=== PATIENT | female | born 1970 | race Caucasian/White ===

== ENCOUNTER → 2016-08-18 | Outpatient (CLI) | payer BC ==
--- NOTE | 2016-08-19 07:57 | MM ---
Reason for exam: screening (asymptomatic). Last mammogram was performed 6 years and 9 months ago. History: Patient is postmenopausal. Saline implants in both breasts, November 2009. Physical Findings: A clinical breast exam by your physician is recommended on an annual basis and results should be correlated with mammographic findings. MG Screening Mammo Implant/CAD Bilateral CC, MLO, and ID view(s) were taken. Prior study comparison: November 13, 2009, bilateral digital screening mammogram. The breast tissue is extremely dense which could obscure a lesion on mammography. Interval placement of bilateral breast implants. ASSESSMENT: Benign, BI-RAD 2 RECOMMENDATION: Routine screening mammogram of both breasts in 1 year.
== END | disposition home or self-care (01) ==
LOC: RADMAMWWP 11:14
PROVIDERS: ATTEND Family Medicine
DX: Z12.31 Encounter for screening mammogram for malignant neoplasm of breast (principal)

== ENCOUNTER → 2017-01-16 | Outpatient (CLI) | payer BC ==
--- NOTE | 2017-01-16 14:01 | US ---
EXAMINATION TYPE: US venous doppler duplex LE LT DATE OF EXAM: 01/16/2017 1:43 PM COMPARISON: NONE CLINICAL HISTORY: 46-year-old female M79.662 PAIN IN LT LOWER LIMB. Swelling in left lower leg x 1 da y per patient. SIDE PERFORMED: Left TECHNIQUE: The lower extremity deep venous system is examined utilizing real time linear array sonog jena with graded compression, doppler sonography and color-flow sonography. FINDINGS: VESSELS IMAGED: Common Femoral Vein Deep Femoral Vein Greater Saphenous Vein * Femoral Vein Popliteal Vein Small Saphenous Vein * Proximal Calf Veins Posterior tibial veins (* superficial vessels) Left Leg: Negative for DVT. Incidentally, a prominent left inguinal lymph node is imaged = 2.8 x 1.5 x 0.6cm. There is maintenanc e of a large fatty hilum. IMPRESSION: No evidence for DVT within the left lower extremity.
[2017-01-16 14:58] LABS: Basophils % (A) 0 %; CH 30.5; CHCM 33.9; Eosinophils # (A) 0.2 k/uL (0-0.7); Eosinophils % (A) 3 %; HCT 37.9 % (34.0-46.0); HDW 2.64; HGB 12.4 gm/dL (11.4-16.0); Luc # (Auto) 0.15; Luc % (Auto) 3; Lymphocytes # (A) 1.8 k/uL (1.0-4.8); Lymphocytes % (A) 31 %; MCH 29.5 pg (25.0-35.0); MCHC 32.6 g/dL (31.0-37.0); MCV 90.5 fL (80.0-100.0); Mean Platelet Volume 6.7; Monocytes # (A) 0.4 k/uL (0-1.0); Monocytes % (A) 6 %; Neutrophils # (A) 3.4 k/uL (1.3-7.7); Neutrophils % (A) 58 %; RBC 4.19 m/uL (3.80-5.40); RDW 12.9 % (11.5-15.5); WBC 5.8 k/uL (3.8-10.6); WBC (Perox) 5.91
[2017-01-16 15:00] LABS: Potassium 3.8 mmol/L (3.5-5.1)
== END | disposition home or self-care (01) ==
LOC: RADUSWWP 12:35
PROVIDERS: ATTEND Family Medicine
DX: M79.662 Pain in left lower leg (principal); E87.6 Hypokalemia; E87.5 Hyperkalemia
CPT/HCPCS: 36415; 80051; 85025

== ENCOUNTER → 2018-09-19 | Outpatient (CLI) | payer BC ==
--- NOTE | 2018-09-19 09:42 | US ---
EXAMINATION TYPE: US liver DATE OF EXAM: 09/19/2018 COMPARISON: NONE CLINICAL HISTORY: R94.5 Abnormal LFTS. Elevated liver enzymes, history of cholecystectomy EXAM MEASUREMENTS: Liver Length: 15.5 cm Gallbladder Wall: surgically absent CBD: 0.3 cm Right Kidney: 11.1 x 5.4 x 4.5 cm Pancreas: wnl Liver: mildly heterogeneous Gallbladder: surgically absent Evidence for sonographic Levy's sign: no CBD: visualized portions wnl, limited by overlying bowel gas Right Kidney: wnl IMPRESSION: Very mild heterogeneity of the hepatic parenchyma may relate to early hepatocellular dise ase/early hepatic steatosis. No focal suspicious sonographic hepatic mass is seen.
== END | disposition home or self-care (01) ==
LOC: RADUSWWP 08:59
PROVIDERS: ATTEND Family Medicine
DX: R93.2 Abnormal findings on diagnostic imaging of liver and biliary tract (principal); Z79.899 Other long term (current) drug therapy
CPT/HCPCS: 76705

== ENCOUNTER → 2018-11-19 | Outpatient (CLI) | payer BC ==
--- NOTE | 2018-11-20 14:42 | MM ---
Reason for exam: screening (asymptomatic). Last mammogram was performed 2 years and 3 months ago. History: Patient is postmenopausal. Saline implants in both breasts, November 2009. Physical Findings: A clinical breast exam by your physician is recommended on an annual basis and results should be correlated with mammographic findings. MG 3D Screen Mammo Imp/Cad Bilateral CC, MLO, and ID view(s) were taken. Prior study comparison: August 18, 2016, bilateral MG screening mammo implant/CAD. November 13, 2009, bilateral digital screening mammogram. The breast tissue is heterogeneously dense. This may lower the sensitivity of mammography. No suspicious abnormality. Bilateral retropectoral saline implants noted. No significant changes when compared with prior studies. ASSESSMENT: Negative, BI-RAD 1 RECOMMENDATION: Routine screening mammogram of both breasts in 1 year.
== END ==
LOC: RADMAMWWP 09:08
PROVIDERS: ATTEND Family Medicine
DX: Z12.31 Encounter for screening mammogram for malignant neoplasm of breast (principal)
CPT/HCPCS: 77063; 77067

== ENCOUNTER 2020-05-02 18:44 | Observation (INO) | payer BC, MEDICARE ==
[2020-05-02] MEDS ORDERED: SODIUM CHLORIDE 0.9% 1,000 ML IV STA ×2 (19:16)
[2020-05-02] MEDS ORDERED: ONDANSETRON 4 MG/2 ML VIAL IVP STA (19:16)
[2020-05-02] MEDS ORDERED: HYDROmorphone 1 MG/ML 1 ML SYRINGE IVP STA ×2 (19:16→20:28)
[2020-05-02] MEDS ORDERED: ACETAMINOPHEN TAB 500 MG TAB PO STA (19:18)
--- NOTE | 2020-05-02 19:23 | ED ---
Abdominal Pain HPI - General Chief Complaint: Abdominal Pain Stated Complaint: Abd Pain Time Seen by Provider: 05/02/20 18:59 Source: patient, RN notes reviewed, old records reviewed Mode of arrival: ambulatory Limitations: no limitations - History of Present Illness Initial Comments: 49-year-old female presents the ER today for evaluation with chief complaint of right lower quadrant abdominal pain starting today. She arrives to emergency department with a fever of 101.3. Surgical history includes partial hysterectomy. She's had history of kidney stones in the past and states this pain seems somewhat different. She also complains of diarrhea and nausea starting today. Patient has a history of IBS as well. She denies any bloody stools. Patient last ate yesterday evening. - Related Data Home Medications Medication Instructions Recorded Confirmed Gabapentin [Neurontin] 300 mg PO TID 12/26/14 12/26/14 HYDROcodone/APAP 5-325MG [[place] 5] 1 each PO Q6HR PRN 12/26/14 12/26/14 Pantoprazole Sodium [Protonix] 20 mg PO DAILY 12/26/14 12/26/14 Venlafaxine HCl [Effexor Xr] 300 mg PO DAILY 12/26/14 12/26/14 buPROPion HCL [Wellbutrin SR] 200 mg PO BID 12/26/14 12/26/14 traZODone HCL [Desyrel] 50 mg PO HS PRN 12/26/14 12/26/14 Previous Rx's Medication Instructions Recorded Hydrocodone/Acetaminophen [[place] 1 each PO Q6HR PRN #12 tab 12/26/14 5-325] LORazepam [Ativan] 0.5 mg PO TID #8 tab 12/26/14 Ondansetron [Zofran] 4 mg PO Q8HR PRN #8 tab 12/26/14 Allergies Allergy/AdvReac Type Severity Reaction Status Date / Time aspirin Allergy Rash/Hives Verified 05/02/20 18:53 Review of Systems ROS Statement: Those systems with pertinent positive or pertinent negative responses have been documented in the HPI. ROS Other: All systems not noted in ROS Statement are negative. Past Medical History Additional Past Medical History / Comment(s): back pain History of Any Multi-Drug Resistant Organisms: None Reported Past Surgical History: Section, Cholecystectomy, Hysterectomy Additional Past Surgical History / Comment(s): breast augmentation Past Psychological History: Depression Smoking Status: Current every day smoker Past Alcohol Use History: None Reported Past Drug Use History: Marijuana General Exam - General Exam Comments Initial Comments: 49-year-old female. Alert and oriented 3. Limitations: no limitations General appearance: alert, in no apparent distress Head exam: Present: atraumatic, normocephalic, normal inspection Eye exam: Present: normal appearance, PERRL, EOMI. Absent: scleral icterus, conjunctival injection, periorbital swelling ENT exam: Present: normal exam, mucous membranes moist Neck exam: Present: normal inspection. Absent: tenderness, meningismus, lymphadenopathy Respiratory exam: Present: normal lung sounds bilaterally. Absent: respiratory distress, wheezes, rales, rhonchi, stridor Cardiovascular Exam: Present: regular rate, normal rhythm, normal heart sounds. Absent: systolic murmur, diastolic murmur, rubs, gallop, clicks GI/Abdominal exam: Present: soft, tenderness (guarding in right lower quadrant tenderness), normal bowel sounds. Absent: distended, guarding, rebound, rigid Extremities exam: Present: normal inspection, full ROM, normal capillary refill. Absent: tenderness, pedal edema, joint swelling, calf tenderness Back exam: Present: normal inspection Neurological exam: Present: alert, oriented X3, CN II-XII intact Psychiatric exam: Present: normal affect, normal mood Skin exam: Present: warm, dry, intact, normal color. Absent: rash Course Vital Signs 05/02/20 05/02/20 18:49 19:50 Temperature 101.3 F H Pulse Rate 98 95 Respiratory 18 18 Rate Blood Pressure 129/88 136/88 O2 Sat by Pulse 98 97 Oximetry Medical Decision Making - Medical Decision Making Patient is a pleasant 49-year-old female who presents with 1 day of right lower quadrant abdominal pain. She arrives to the emergency department with a fever of 101.3. She has significant tender at this and guarding to the right lower quadrant. Patient's labs were reviewed and has a white blood cell count of 18,000. Patient's lactic acid was within normal limits. Patient CT scan of the abdomen pelvis shows inflammatory changes and dilated appendix consistent with appendicitis. Patient's case was discussed with Dr. Madden who discussed the case with Dr. Rooney. Pt started on Zosyn. Patient was admitted at this time remaining nothing by mouth. - Lab Data Result diagrams: 05/02/20 19:34 05/02/20 19:34 Lab Results 05/02/20 05/02/20 05/02/20 Range/Units 19:34 19:34 19:34 WBC 18.1 H (3.8-10.6) k/uL RBC 4.55 (3.80-5.40) m/uL Hgb 13.6 (11.4-16.0) gm/dL Hct 42.2 (34.0-46.0) % MCV 92.8 (80.0-100.0) fL MCH 29.9 (25.0-35.0) pg MCHC 32.2 (31.0-37.0) g/dL RDW 12.5 (11.5-15.5) % Plt Count 578 H (150-450) k/uL Neutrophils % 84 % Lymphocytes % 9 % Monocytes % 5 % Eosinophils % 2 % Basophils % 0 % Neutrophils # 15.1 H (1.3-7.7) k/uL Lymphocytes # 1.6 (1.0-4.8) k/uL Monocytes # 0.8 (0-1.0) k/uL Eosinophils # 0.4 (0-0.7) k/uL Basophils # 0.0 (0-0.2) k/uL PT 10.0 (9.0-12.0) sec INR 1.0 (<1.2) APTT 26.6 (22.0-30.0) sec Sodium 134 L (137-145) mmol/L Potassium 3.9 (3.5-5.1) mmol/L Chloride 105 (98-107) mmol/L Carbon Dioxide 18 L (22-30) mmol/L Anion Gap 11 mmol/L BUN 16 (7-17) mg/dL Creatinine 0.65 (0.52-1.04) mg/dL Est GFR (CKD-EPI)AfAm >90 (>60 ml/min/1.73 sqM) Est GFR (CKD-EPI)NonAf >90 (>60 ml/min/1.73 sqM) Glucose 118 H (74-99) mg/dL Plasma Lactic Acid Jin (0.7-2.0) mmol/L Calcium 8.9 (8.4-10.2) mg/dL Total Bilirubin 0.9 (0.2-1.3) mg/dL AST 28 (14-36) U/L ALT 25 (4-34) U/L Alkaline Phosphatase 70 (38-126) U/L Total Protein 7.4 (6.3-8.2) g/dL Albumin 4.4 (3.5-5.0) g/dL Amylase <30 L (30-110) U/L Lipase 16 L (23-300) U/L 05/02/20 Range/Units 19:34 WBC (3.8-10.6) k/uL RBC (3.80-5.40) m/uL Hgb (11.4-16.0) gm/dL Hct (34.0-46.0) % MCV (80.0-100.0) fL MCH (25.0-35.0) pg MCHC (31.0-37.0) g/dL RDW (11.5-15.5) % Plt Count (150-450) k/uL Neutrophils % % Lymphocytes % % Monocytes % % Eosinophils % % Basophils % % Neutrophils # (1.3-7.7) k/uL Lymphocytes # (1.0-4.8) k/uL Monocytes # (0-1.0) k/uL Eosinophils # (0-0.7) k/uL Basophils # (0-0.2) k/uL PT (9.0-12.0) sec INR (<1.2) APTT (22.0-30.0) sec Sodium (137-145) mmol/L Potassium (3.5-5.1) mmol/L Chloride (98-107) mmol/L Carbon Dioxide (22-30) mmol/L Anion Gap mmol/L BUN (7-17) mg/dL Creatinine (0.52-1.04) mg/dL Est GFR (CKD-EPI)AfAm (>60 ml/min/1.73 sqM) Est GFR (CKD-EPI)NonAf (>60 ml/min/1.73 sqM) Glucose (74-99) mg/dL Plasma Lactic Acid Jin 1.1 (0.7-2.0) mmol/L Calcium (8.4-10.2) mg/dL Total Bilirubin (0.2-1.3) mg/dL AST (14-36) U/L ALT (4-34) U/L Alkaline Phosphatase (38-126) U/L Total Protein (6.3-8.2) g/dL Albumin (3.5-5.0) g/dL Amylase (30-110) U/L Lipase (23-300) U/L Disposition Clinical Impression: Appendicitis Disposition: ADMITTED IP TO THIS HOSP Condition: Stable Is patient prescribed a controlled substance at d/c from ED?: No Referrals: Robyn Sharma MD [Primary Care Provider] - 1-2 days Time of Disposition: 20:44
[2020-05-02 19:50] LABS: Basophils % (A) 0 %; Eosinophils # (A) 0.4 k/uL (0-0.7); Eosinophils % (A) 2 %; HCT 42.2 % (34.0-46.0); HGB 13.6 gm/dL (11.4-16.0); Lymphocytes # (A) 1.6 k/uL (1.0-4.8); Lymphocytes % (A) 9 %; MCH 29.9 pg (25.0-35.0); MCHC 32.2 g/dL (31.0-37.0); MCV 92.8 fL (80.0-100.0); Mean Platelet Volume 6.5; Monocytes # (A) 0.8 k/uL (0-1.0); Monocytes % (A) 5 %; Neutrophils # (A) 15.1 k/uL (1.3-7.7); Neutrophils % (A) 84 %; Platelet Count 578 k/uL (150-450); RBC 4.55 m/uL (3.80-5.40); RDW 12.5 % (11.5-15.5); WBC 18.1 k/uL (3.8-10.6)
[2020-05-02 19:59] LABS: Partial Thromboplastin Time 26.6 sec (22.0-30.0)
[2020-05-02 20:07] LABS: ALT 25 U/L (4-34); AST 28 U/L (14-36); African American GFR (CKD) >90 (>60 ml/min/1.73 sqM); Albumin 4.4 g/dL (3.5-5.0); Alkaline Phosphatase 70 U/L (38-126); Amylase <30 U/L (30-110); Anion Gap 11 mmol/L; Blood Urea Nitrogen 16 mg/dL (7-17); Calcium 8.9 mg/dL (8.4-10.2); Carbon Dioxide 18 mmol/L (22-30); Chloride 105 mmol/L (98-107); Glucose 118 mg/dL (74-99); Non-African American GFR(CKD) >90 (>60 ml/min/1.73 sqM); Potassium 3.9 mmol/L (3.5-5.1); Sodium 134 mmol/L (137-145); Total Bilirubin 0.9 mg/dL (0.2-1.3); Total Protein 7.4 g/dL (6.3-8.2)
--- NOTE | 2020-05-02 20:23 | CT ---
EXAMINATION TYPE: CT abdomen pelvis w con DATE OF EXAM: 05/02/2020 COMPARISON: None HISTORY: RLQ pain. Hx david, hysterectomy, . CT DLP: 754.9 mGycm Automated exposure control for dose reduction was used. CONTRAST: Performed with IV Contrast, patient injected with 100 mL of Isovue 370. Lung bases are clear of consolidation. There is no pleural effusion. Heart size is normal. There is n o pericardial effusion. Liver shows no focal defect. Spleen is intact. There is no evidence of pancreatic mass. There are cli ps from cholecystectomy. The bile ducts are not dilated. There is no adrenal mass. Kidneys show satisfactory contrast opacification. There is no hydronephrosi s. Delayed images show normal renal excretion. There is no retroperitoneal adenopathy. Ureters are no t dilated. Bladder distends smoothly. There is no inguinal hernia. There is no free fluid in the pelv is. There is some fat stranding in the right lower quadrant around the cecum. Terminal ileum appears norm al. Ileocecal valve appears normal. There is irregular dilation of the appendix that measures up to 1 6 mm. The lumbar vertebra show fairly normal alignment. The posterior elements are intact. Bony pelvis is i ntact. Hip joints are intact. There is no mesenteric edema. There is no ascites. There is no sign of free air. IMPRESSION: Inflammatory changes with fat stranding and apparent irregular thickening of the appendix consistent with appendicitis. No bowel obstruction.
[2020-05-02] MEDS ORDERED: PIPERACILLIN-TAZOBACTAM 3.375 GM in SODIUM CHLORIDE 0.9% 100 ML IVPB STA (20:25)
[2020-05-02 22:04] LABS: Appearance,Urine Clear (Clear); Bilirubin,Urine Negative (Negative); Blood,Urine Trace (Negative); Color,Urine Yellow; Glucose,Urine (UA) Negative (Negative); Ketones,Urine Negative (Negative); Leukocyte Esterase,Urine Small (Negative); Mucus,Urine Rare /hpf; Nitrite,Urine Positive (Negative); Protein,Urine Trace (Negative); RBC,Urine 2 /hpf (0-5); Squamous Epithelial Cell,Urine 3 /hpf (0-4); Urobilinogen,Urine <2.0 mg/dL (<2.0); WBC,Urine 5 /hpf (0-5)
[2020-05-02 22:41] LABS: Specific Gravity,Urine >1.050 (1.001-1.035)
[2020-05-02] MEDS ORDERED: diphenhydrAMINE 50 MG/ML 1 ML VIAL IVP PRN (22:44)
[2020-05-02] MEDS: buPROPion XL 300 MG TAB.ER.24H PO SCH (23:16)
[2020-05-02] MEDS: buPROPion XL 150 MG TAB.ER.24H PO SCH (23:16)
[2020-05-02] MEDS: ESCITALOPRAM 20 MG TAB PO SCH (23:17)
[2020-05-02] MEDS: busPIRone HCl 5 MG TAB PO SCH (23:17)
[2020-05-02] MEDS: ZOLPIDEM 10 MG TAB PO PRN (23:18)
[2020-05-02] MEDS: ONDANSETRON 4 MG/2 ML VIAL IVP SCH (23:18)
[2020-05-02] MEDS: HYDROmorphone 1 MG/ML 1 ML SYRINGE IVP PRN (23:23)
[2020-05-03] MEDS: PIPERACILLIN-TAZOBACTAM 3.375 GM in SODIUM CHLORIDE 0.9% 100 ML IVPB SCH ×4 (00:39→23:12)
[2020-05-03] MEDS: ACETAMINOPHEN TAB 325 MG TAB PO SCH ×4 (00:43→20:29)
[2020-05-03] MEDS: HYDROmorphone 1 MG/ML 1 ML SYRINGE IVP PRN ×4 (03:50→20:41)
[2020-05-03] MEDS: ONDANSETRON 4 MG/2 ML VIAL IVP SCH ×4 (05:08→23:12)
[2020-05-03 07:31] LABS: Basophils % (A) 0 %; Eosinophils # (A) 0.2 k/uL (0-0.7); Eosinophils % (A) 1 %; HCT 34.9 % (34.0-46.0); HGB 11.6 gm/dL (11.4-16.0); Lymphocytes # (A) 1.5 k/uL (1.0-4.8); Lymphocytes % (A) 11 %; MCH 31.4 pg (25.0-35.0); MCHC 33.3 g/dL (31.0-37.0); MCV 94.3 fL (80.0-100.0); Mean Platelet Volume 6.5; Monocytes # (A) 0.6 k/uL (0-1.0); Monocytes % (A) 4 %; Neutrophils # (A) 11.4 k/uL (1.3-7.7); Neutrophils % (A) 83 %; Platelet Count 451 k/uL (150-450); WBC 13.8 k/uL (3.8-10.6)
[2020-05-03 07:55] LABS: ALT 25 U/L (4-34); AST 24 U/L (14-36); African American GFR (CKD) >90 (>60 ml/min/1.73 sqM); Albumin 3.1 g/dL (3.5-5.0); Alkaline Phosphatase 59 U/L (38-126); Anion Gap 6 mmol/L; Blood Urea Nitrogen 12 mg/dL (7-17); Calcium 7.5 mg/dL (8.4-10.2); Carbon Dioxide 21 mmol/L (22-30); Chloride 108 mmol/L (98-107); Glucose 97 mg/dL (74-99); Non-African American GFR(CKD) >90 (>60 ml/min/1.73 sqM); Potassium 3.3 mmol/L (3.5-5.1); Sodium 135 mmol/L (137-145); Total Bilirubin 1.1 mg/dL (0.2-1.3); Total Protein 5.5 g/dL (6.3-8.2)
[2020-05-03] MEDS: ENOXAPARIN 30 MG/0.3 ML SYRINGE SQ SCH (08:03)
[2020-05-03] MEDS: buPROPion XL 300 MG TAB.ER.24H PO SCH (08:14)
[2020-05-03] MEDS: buPROPion XL 150 MG TAB.ER.24H PO SCH (08:14)
[2020-05-03] MEDS: busPIRone HCl 5 MG TAB PO SCH ×2 (08:14→20:29)
[2020-05-03] MEDS: ESCITALOPRAM 20 MG TAB PO SCH (08:14)
[2020-05-03] MEDS ORDERED: HYDROmorphone 1 MG/ML 1 ML SYRINGE IVP PRN (09:37)
[2020-05-03] MEDS ORDERED: IV FLUID CONTINUATION 400 ML IV ONE (11:13)
[2020-05-03] MEDS ORDERED: DEXAMETHASONE SOD PHOSPHATE 10 MG/ML 1 ML VIAL IV ONE (11:25)
[2020-05-03] MEDS ORDERED: ONDANSETRON 4 MG/2 ML VIAL IVP ONE (11:25)
--- NOTE | 2020-05-03 11:27 | P.GSHP ---
History of Present Illness H&P Date: 05/03/20 CHIEF COMPLAINT: Right lower quadrant abdominal pain with appendicitis for over 1 day. HISTORY OF PRESENT ILLNESS: The patient is a 49-year-old female pre-existing history of irritable bowel syndrome and has yearly colonoscopies done at [facility] who presents with over day history of right lower quadrant abdominal pain sharp in nature. She reports pre-existing history of abdominal pain however not of this intensity. She chronically takes narcotics for chronic pain syndrome as well. She reports anxiety. She has low appetite. No reports a recent blood in stools. CT of the abdomen was consistent with acute appendicitis since her admission. PAST MEDICAL HISTORY: See list. PAST SURGICAL HISTORY: See list. CURRENT MEDICATIONS: See list. ALLERGIES: See list. SOCIAL HISTORY: See list. FAMILY HISTORY: No Crohns disease and ulcerative colitis. REVIEW OF ORGAN SYSTEMS: CONSTITUTIONAL: Present fever, no chills. Denies recent weight loss. HEENT: Denies any trouble with vision, hearing or nosebleeds. No difficulty swallowing. LYMPHATIC: The patient denies any lumps and bumps around the neck. ENDOCRINE: Denies any thyroid disorders. Denies any blood sugar glucose intolerance. RESPIRATORY: Denies shortness of breath including chronic cough. CARDIOVASCULAR: Denies history of chest pain with exertion. GASTROINTESTINAL: Denies regurgitation of bile at night as well as intermittent nausea. No blood in stools. Reports ulcerative colitis. No reports of Crohn's disease. GENITOURINARY: Denies any blood in urine or increased urinary frequency. History of including hysterectomy. MUSCULOSKELETAL: Has current joint arthritis. Has chronic pain and uses narcotics. NEUROLOGIC: Denies any numbness or tingling along the distal extremities. No seizure disorders or headaches. PSYCHIATRIC: Denies suicidal ideation. Has depression. HEMATOLOGIC: Denies any abnormal bleeding or bruising. PHYSICAL EXAMINATION: GENERAL: Well-developed female in no acute distress. Pleasant. HEENT: No sclera icterus. Extraocular movements grossly intact. Moist buccal mucosa. Head is atraumatic, normocephalic. Hears conversational speech. No nasal drainage. NECK: Supple without lymphadenopathy. No JV distention. CHEST: Non-labored respirations and equal bilateral excursions. CARDIOVASCULAR: Regular rate and rhythm. Palpable 2+ radial pulses. ABDOMEN: Soft, tender at the right lower quadrant without guarding. Has an umbilical hernia 1 cm. MUSCULOSKELETAL: No clubbing, cyanosis or edema. NEUROLOGIC: No focal or lateralizing signs. PSYCH: Appropriate affect. Alert and oriented to person, place and time. SKIN: Well perfused. Good skin turgor. LABS: Reviewed. White blood cell count elevated over 18,000 on admission. WBC improved to over 13,000 STUDIES: CT of the abdomen and pelvis independently reviewed with inflammatory changes right lower quadrant. Presence of cholecystectomy clips identified. Gallbladder absent. Uterus absent. ASSESSMENT: 1. Right lower quadrant pain. 2. Appendicitis with sepsis due to white count over 18,000, temperature over 101, heart rate of 90 3. Chronic pain syndrome 4. Irritable bowel syndrome 5. Ulcerative colitis PLAN: 1. I have discussed benefits and risks of robotic appendectomy. 2. Bilateral SCDs. 3. Antibiotics intravenous to address moderate leukocytosis with underlying sepsis Thank you very much for allowing me to participate in the care of your pat ient. Past Medical History Additional Past Medical History / Comment(s): back pain History of Any Multi-Drug Resistant Organisms: None Reported Past Surgical History: Section, Cholecystectomy, Hysterectomy, Orthopedic Surgery Additional Past Surgical History / Comment(s): breast augmentation, left thumb surgery (2019) Past Psychological History: Depression Smoking Status: Current every day smoker Past Alcohol Use History: None Reported Past Drug Use History: Marijuana Medications and Allergies Home Medications Medication Instructions Recorded Confirmed Type Escitalopram [Lexapro] 20 mg PO DAILY 05/02/20 05/02/20 History HYDROcodone/APAP 10-325MG [[place] 1 tab PO QID 05/02/20 05/02/20 History 10-325] Hyoscyamine Sulfate [Hyoscyamine 0.125 mg SL DAILY PRN 05/02/20 05/02/20 History Sulfate SL] Pantoprazole [Protonix] 40 mg PO DAILY 05/02/20 05/02/20 History Zolpidem [Ambien] 10 mg PO HS 05/02/20 05/02/20 History buPROPion HCL [Wellbutrin XL] 300 mg PO DAILY 05/02/20 05/02/20 History buPROPion XL [Wellbutrin Xl] 150 mg PO DAILY 05/02/20 05/02/20 History busPIRone HCL 7.5 mg PO BID 05/02/20 05/02/20 History Allergies Allergy/AdvReac Type Severity Reaction Status Date / Time aspirin Allergy Rash/Hives Verified 05/02/20 20:58 Penicillins Allergy Itching/Anthony Verified 05/02/20 20:58 sea morphine AdvReac Nausea & Verified 05/02/20 20:58 Vomiting Surgical - Exam Vital Signs Temp Pulse Resp BP Pulse Ox 101.3 F H 98 18 129/88 98 05/02/20 18:49 05/02/20 18:49 05/02/20 18:49 05/02/20 18:49 05/02/20 18:49 Results - Labs 05/03/20 07:20 05/03/20 07:20 Abnormal Lab Results - Last 24 Hours (Table) 05/02/20 05/02/20 05/02/20 Range/Units 19:34 19:34 21:33 WBC 18.1 H (3.8-10.6) k/uL RBC (3.80-5.40) m/uL Plt Count 578 H (150-450) k/uL Neutrophils # 15.1 H (1.3-7.7) k/uL Sodium 134 L (137-145) mmol/L Potassium (3.5-5.1) mmol/L Chloride (98-107) mmol/L Carbon Dioxide 18 L (22-30) mmol/L Glucose 118 H (74-99) mg/dL Calcium (8.4-10.2) mg/dL Total Protein (6.3-8.2) g/dL Albumin (3.5-5.0) g/dL Amylase <30 L (30-110) U/L Lipase 16 L (23-300) U/L Ur Specific [place] >1.050 H (1.001-1.035) Urine Protein Trace H (Negative) Urine Blood Trace H (Negative) Urine Nitrite Positive H (Negative) Ur Leukocyte Esterase Small H (Negative) Urine Mucus Rare H (None) /hpf 05/03/20 05/03/20 Range/Units 07:20 07:20 WBC 13.8 H (3.8-10.6) k/uL RBC 3.70 L (3.80-5.40) m/uL Plt Count 451 H (150-450) k/uL Neutrophils # 11.4 H (1.3-7.7) k/uL Sodium 135 L (137-145) mmol/L Potassium 3.3 L (3.5-5.1) mmol/L Chloride 108 H (98-107) mmol/L Carbon Dioxide 21 L (22-30) mmol/L Glucose (74-99) mg/dL Calcium 7.5 L (8.4-10.2) mg/dL Total Protein 5.5 L (6.3-8.2) g/dL Albumin 3.1 L (3.5-5.0) g/dL Amylase (30-110) U/L Lipase (23-300) U/L Ur Specific [place] (1.001-1.035) Urine Protein (Negative) Urine Blood (Negative) Urine Nitrite (Negative) Ur Leukocyte Esterase (Negative) Urine Mucus (None) /hpf Diabetes panel 05/02/20 05/03/20 Range/Units 19:34 07:20 Sodium 134 L 135 L (137-145) mmol/L Potassium 3.9 3.3 L (3.5-5.1) mmol/L Chloride 105 108 H (98-107) mmol/L Carbon Dioxide 18 L 21 L (22-30) mmol/L BUN 16 12 (7-17) mg/dL Creatinine 0.65 0.68 (0.52-1.04) mg/dL Glucose 118 H 97 (74-99) mg/dL Calcium 8.9 7.5 L (8.4-10.2) mg/dL AST 28 24 (14-36) U/L ALT 25 25 (4-34) U/L Alkaline Phosphatase 70 59 (38-126) U/L Total Protein 7.4 5.5 L (6.3-8.2) g/dL Albumin 4.4 3.1 L (3.5-5.0) g/dL Calcium panel 05/02/20 05/03/20 Range/Units 19:34 07:20 Calcium 8.9 7.5 L (8.4-10.2) mg/dL Albumin 4.4 3.1 L (3.5-5.0) g/dL Pituitary panel 05/02/20 05/03/20 Range/Units 19:34 07:20 Sodium 134 L 135 L (137-145) mmol/L Potassium 3.9 3.3 L (3.5-5.1) mmol/L Chloride 105 108 H (98-107) mmol/L Carbon Dioxide 18 L 21 L (22-30) mmol/L BUN 16 12 (7-17) mg/dL Creatinine 0.65 0.68 (0.52-1.04) mg/dL Glucose 118 H 97 (74-99) mg/dL Calcium 8.9 7.5 L (8.4-10.2) mg/dL Adrenal panel 05/02/20 05/03/20 Range/Units 19:34 07:20 Sodium 134 L 135 L (137-145) mmol/L Potassium 3.9 3.3 L (3.5-5.1) mmol/L Chloride 105 108 H (98-107) mmol/L Carbon Dioxide 18 L 21 L (22-30) mmol/L BUN 16 12 (7-17) mg/dL Creatinine 0.65 0.68 (0.52-1.04) mg/dL Glucose 118 H 97 (74-99) mg/dL Calcium 8.9 7.5 L (8.4-10.2) mg/dL Total Bilirubin 0.9 1.1 (0.2-1.3) mg/dL AST 28 24 (14-36) U/L ALT 25 25 (4-34) U/L Alkaline Phosphatase 70 59 (38-126) U/L Total Protein 7.4 5.5 L (6.3-8.2) g/dL Albumin 4.4 3.1 L (3.5-5.0) g/dL Assessment and Plan (1) Acute appendicitis Current Visit: Yes Status: Acute Code(s): K35.80 - UNSPECIFIED ACUTE APPENDICITIS SNOMED Code(s): 90475018 (2) Sepsis Current Visit: Yes Status: Acute Code(s): A41.9 - SEPSIS, UNSPECIFIED ORGANISM SNOMED Code(s): 93518150 (3) Ulcerative colitis Current Visit: Yes Status: Acute Code(s): K51.90 - ULCERATIVE COLITIS, UNSPECIFIED, WITHOUT COMPLICATIONS SNOMED Code(s): 43334126 (4) Tobacco abuse Current Visit: Yes Status: Acute Code(s): Z72.0 - TOBACCO USE SNOMED Code(s): 050455542 (5) Chronic pain syndrome Current Visit: Yes Status: Acute Code(s): G89.4 - CHRONIC PAIN SYNDROME SNOMED Code(s): 979116314 (6) Depressive disorder Current Visit: Yes Status: Acute Code(s): F32.9 - MAJOR DEPRESSIVE DISORDER, SINGLE EPISODE, UNSPECIFIED SNOMED Code(s): 77405987
[2020-05-03] MEDS ORDERED: MIDAZOLAM 2 MG/2 ML VIAL IV ONE (11:58)
[2020-05-03] MEDS ORDERED: BUPIVACAINE (PF) 0.5% 30 ML VIAL SQ ONE ×2 (12:12→12:39)
[2020-05-03] MEDS ORDERED: KETOROLAC 15 MG/ML 1 ML VIAL ONE (12:19)
[2020-05-03] MEDS ORDERED: LIDOCAINE 1% INJ 10MG/ML (20 ML MDV) ONE (12:19)
[2020-05-03] MEDS ORDERED: MIDAZOLAM 2 MG/2 ML VIAL ONE (12:19)
[2020-05-03] MEDS ORDERED: PROPOFOL 10 MG/ML 20 ML VIAL IV ONE (12:19)
[2020-05-03] MEDS ORDERED: fentaNYL (PF) 50 MCG/ML 2 ML AMP ONE (12:19)
[2020-05-03] MEDS ORDERED: SUCCINYLCHOLINE CHLORIDE 100 MG/5 ML SYR IV ONE (12:19)
[2020-05-03] MEDS ORDERED: ROCURONIUM 10 MG/ML (10 ML VIAL) IV ONE (12:19)
[2020-05-03] MEDS ORDERED: CEFAZOLIN IV ONE ×2 (12:39)
[2020-05-03] MEDS ORDERED: LACTATED RINGERS IV ONE ×2 (12:39)
[2020-05-03] MEDS ORDERED: LACTATED RINGERS 1,000 ML IV ONE (13:01)
[2020-05-03] MEDS ORDERED: NALOXONE 0.4 MG/ML 1 ML VIAL IV PRN (13:37)
--- NOTE | 2020-05-03 13:37 | P.OP ---
Date of Procedure: 05/03/20 Description of Procedure: SURGEON: DEVAN SANCHEZ MD Preoperative Diagnosis: 1. Acute appendicitis 2. Ulcerative colitis 3. Chronic pain syndrome 4. Depressive disorder 5. Tobacco abuse disorder 6. Gastroesophageal reflux disease Postoperative Diagnosis: 1. Acute appendicitis with periappendicitis 2. Ulcerative colitis 3. Chronic pain syndrome 4. Depressive disorder 5. Tobacco abuse disorder 6. Gastroesophageal reflux disease 7. Pelvic adhesions Procedure(s) Performed: 1. Robotic-assisted daVinci Xi laparoscopic appendectomy 2. Robotic-assisted daVinci Xi laparoscopic lyses of adhesions Anesthesia: GETA, local Estimated Blood Loss (ml): 10 Pathology: other (appendix) Condition: stable Disposition: floor Operative Findings: 1. Acute appendicitis without rupture with periappendicitis 2. Terminal ileum unremarkable 3. Cecum unremarkable 4. No bilateral inguinal hernias INDICATIONS: The patient is a 49-year-old male who presents with acute appendicitis. Benefits and risks, including infection, open surgery, and bleeding for additional surgery was discussed at length. Informed consent was obtained. All questions of the patient and family were answered. DESCRIPTION: The patient was transferred to the operating room and placed in supine position. The patient had previously voided. The abdomen was then prepped and draped in standard sterile fashion as Ioban was placed along the abdomen to minimize any contamination of skin floor. After a timeout protocol was performed, attention was then brought to the left upper quadrant whereby a 0 degree 5 mm laparoscopic trocar entry was performed. The abdominal cavity was entered and insufflated to 12 mmHg pressure, which was tolerated well. Diagnostic laparoscopy demonstrated no injury to bowel, viscera or mesentery. Omental adhesions to the abdominal wall and pelvis was identified. Next a robotic 8-mm trocar was placed along the left lower quadrant, 10-cm lateral to the midline. A 12 mm port was placed along the left upper quadrant and another 8-mm port left lateral abdominal wall. Ports were placed 8 cm apart from each other including 15-20 cm away from the target anatomy of the right pelvis. The patient was then placed in Trendelenburg position, at least 10 down and right side up at least 7 . The robotic da Mary XI system was primed and docked from the right side of the patient. Using atraumatic graspers and vessel sealer, the robotic system was docked and primed as described. Instruments were interchanged by the assistant real estate manager including graspers, robotic stapler and vessel sealer. Next, attention was brought to identify the cecum. A systematic view within the abdominal cavity was started with the small bowel which was unremarkable. The base of the cecum was unremarkable. Adhesions are found along the right pelvis omentum to the abdominal wall which were taken down using vessel sealer. Separately, no inguinal hernias were identified. The appendix was embedded in surrounding tissues along the right pelvis. The body of the appendix was moderately dilated with moderate periappendicitis. No perforation was identified. The appendix was dissected free from its surrounding tissues. Blue 45 mm robotic staple loads were fired along the base of the appendix. The staple line was hemostatic. Hemostasis was checked prior to undocking the robot. The robot was undocked. I re-scrubbed into the case. The specimen was removed from the abdominal cavity with an Endo Catch bag through the 12 mm trocar at the left upper quadrant. All instruments and pneumoperitoneum were evacuated from the abdominal cavity. Local anesthetic was infiltrated to all wounds for postop analgesia. All incisions were also cleansed with diluted hydrogen peroxide. The incisions were closed with 4-0 Monocryl. Exofin glue was applied to the rest of the skin incisions. The patient had tolerated the procedure well. The patient was extubated successfully. The patient was transferred to the postanesthesia care unit in stable condition.
[2020-05-03] MEDS ORDERED: DEXAMETHASONE SOD PHOSPHATE 10 MG/ML 1 ML VIAL IV PRN (13:38)
[2020-05-03] MEDS: KETOROLAC 15 MG/ML 1 ML VIAL IVP SCH ×3 (14:15→23:26)
[2020-05-03] MEDS: PANTOPRAZOLE 40 MG/10 ML VIAL IV SCH (14:15)
[2020-05-03] MEDS: SIMETHICONE 80 MG CHEWABLE PO SCH ×2 (14:16→20:30)
[2020-05-03] MEDS: HYDROcodone/APAP 5-325MG 1 EACH TAB PO PRN (17:08)
[2020-05-03] MEDS: ZOLPIDEM 10 MG TAB PO PRN (23:13)
[2020-05-04] MEDS: ACETAMINOPHEN TAB 325 MG TAB PO SCH ×3 (04:09→12:52)
[2020-05-04 04:22] VITALS: RESP 16
[2020-05-04] MEDS: HYDROmorphone 1 MG/ML 1 ML SYRINGE IVP PRN (04:37)
[2020-05-04] MEDS: HYDROcodone/APAP 5-325MG 1 EACH TAB PO PRN ×2 (07:03→13:00)
[2020-05-04] MEDS: KETOROLAC 15 MG/ML 1 ML VIAL IVP SCH ×2 (07:04→12:03)
[2020-05-04] MEDS: ONDANSETRON 4 MG/2 ML VIAL IVP SCH ×2 (07:04→12:03)
[2020-05-04 08:04] LABS: Basophils % (A) 0 %; Eosinophils % (A) 0 %; HCT 29.3 % (34.0-46.0); Lymphocytes # (A) 1.4 k/uL (1.0-4.8); Lymphocytes % (A) 10 %; MCH 31.1 pg (25.0-35.0); MCHC 33.1 g/dL (31.0-37.0); MCV 94.2 fL (80.0-100.0); Mean Platelet Volume 6.8; Monocytes # (A) 0.5 k/uL (0-1.0); Monocytes % (A) 4 %; Neutrophils # (A) 11.6 k/uL (1.3-7.7); Neutrophils % (A) 84 %; Platelet Count 387 k/uL (150-450); RBC 3.11 m/uL (3.80-5.40); WBC 13.7 k/uL (3.8-10.6)
[2020-05-04 08:08] VITALS: BP 113/66; PULSE 82; TEMP 98.8
[2020-05-04 08:13] LABS: HGB 9.7 gm/dL (11.4-16.0)
[2020-05-04] MEDS: PIPERACILLIN-TAZOBACTAM 3.375 GM in SODIUM CHLORIDE 0.9% 100 ML IVPB SCH (08:15)
[2020-05-04] MEDS: SIMETHICONE 80 MG CHEWABLE PO SCH (08:16)
[2020-05-04] MEDS: PANTOPRAZOLE 40 MG/10 ML VIAL IV SCH (08:16)
[2020-05-04] MEDS: buPROPion XL 150 MG TAB.ER.24H PO SCH (08:17)
[2020-05-04] MEDS: ENOXAPARIN 30 MG/0.3 ML SYRINGE SQ SCH (08:17)
[2020-05-04] MEDS: buPROPion XL 300 MG TAB.ER.24H PO SCH (08:17)
[2020-05-04] MEDS: ESCITALOPRAM 20 MG TAB PO SCH (08:17)
[2020-05-04] MEDS: busPIRone HCl 5 MG TAB PO SCH (08:17)
[2020-05-04 08:25] LABS: African American GFR (CKD) >90 (>60 ml/min/1.73 sqM); Anion Gap 6 mmol/L; Blood Urea Nitrogen 10 mg/dL (7-17); Calcium 7.6 mg/dL (8.4-10.2); Carbon Dioxide 19 mmol/L (22-30); Chloride 111 mmol/L (98-107); Glucose 115 mg/dL (74-99); Magnesium 1.5 mg/dL (1.6-2.3); Non-African American GFR(CKD) >90 (>60 ml/min/1.73 sqM); Phosphorus 2.5 mg/dL (2.5-4.5); Potassium 3.1 mmol/L (3.5-5.1); Sodium 136 mmol/L (137-145)
[2020-05-04] MEDS ORDERED: POTASSIUM CHLORIDE ER 20 MEQ TAB.ER PO STA (08:43)
[2020-05-04] MEDS: MAGNESIUM SULFATE-D5W PMX 1 GM in DEXTROSE/WATER 1 100ML.BAG IVPB SCH ×4 (10:21→14:15)
[2020-05-04 12:01] LABS: Basophils % (A) 0 %; Eosinophils # (A) 0.1 k/uL (0-0.7); Eosinophils % (A) 0 %; HCT 31.5 % (34.0-46.0); HGB 10.2 gm/dL (11.4-16.0); Lymphocytes # (A) 1.8 k/uL (1.0-4.8); Lymphocytes % (A) 13 %; MCH 30.9 pg (25.0-35.0); MCHC 32.4 g/dL (31.0-37.0); MCV 95.3 fL (80.0-100.0); Mean Platelet Volume 6.7; Monocytes # (A) 0.6 k/uL (0-1.0); Monocytes % (A) 4 %; Neutrophils # (A) 11.2 k/uL (1.3-7.7); Neutrophils % (A) 81 %; Platelet Count 419 k/uL (150-450); RBC 3.31 m/uL (3.80-5.40); RDW 12.1 % (11.5-15.5); WBC 13.7 k/uL (3.8-10.6)
--- NOTE | 2020-05-04 13:26 | P.DS ---
Providers Date of admission: 05/02/20 20:34 Expected date of discharge: 05/04/20 Attending physician: Gabi Santiago Primary care physician: Robyn Sharma - Discharge Diagnosis(es) (1) Acute appendicitis Current Visit: Yes Status: Acute (2) Sepsis Current Visit: Yes Status: Acute (3) Ulcerative colitis Current Visit: Yes Status: Acute (4) Tobacco abuse Current Visit: Yes Status: Acute (5) Chronic pain syndrome Current Visit: Yes Status: Acute (6) Depressive disorder Current Visit: Yes Status: Acute (7) Anemia Current Visit: Yes Status: Acute Hospital Course: Postoperative Diagnosis: 1. Acute appendicitis with periappendicitis with sepsis 2. Ulcerative colitis 3. Chronic pain syndrome 4. Depressive disorder 5. Tobacco abuse disorder 6. Gastroesophageal reflux disease 7. Pelvic adhesions COURSE: The patient is a 49-year-old female pre-existing history of irritable bowel syndrome and has yearly colonoscopies done at [facility] who presents with over day history of right lower quadrant abdominal pain sharp in nature. She presented with CT findings consistent with acute appendicitis. She underwent a robotic appendectomy. Prior to surgery, patient did have drop in hemoglobin. Repeat hemoglobin was performed in stable. Patient was treated for a low potassium including low magnesium. She routinely sees her pain specialist which she will follow-up for chronic pain management. Prior to discharge, patient was stable. PHYSICAL EXAMINATION: Vital Signs Temp 98.8 F 05/04/20 08:06 Pulse 82 05/04/20 08:06 Resp 16 05/04/20 08:06 BP 113/66 05/04/20 08:06 Pulse Ox 100 05/04/20 00:36 Intake & Output 05/03/20 05/04/20 05/04/20 18:59 06:59 18:59 Intake Total 2200 1 251 Output Total 10 1 Balance 2190 1 250 Weight 65.771 kg Intake: IV 2200 Oral 1 251 Output: Stool 1 Estimated Blood Loss 10 Other: # Voids 1 1 GENERAL: Well-developed female in no acute distress. Pleasant. HEENT: No sclera icterus. Extraocular movements grossly intact. Moist buccal mucosa. Head is atraumatic, normocephalic. Hears conversational speech. No nasal drainage. NECK: Supple without lymphadenopathy. No JV distention. CHEST: Non-labored respirations and equal bilateral excursions. CARDIOVASCULAR: Regular rate and rhythm. Palpable 2+ radial pulses. ABDOMEN: Soft, decreased tenderness right lower quadrant. No peritonitis. MUSCULOSKELETAL: No clubbing, cyanosis or edema. NEUROLOGIC: No focal or lateralizing signs. PSYCH: Appropriate affect. Alert and oriented to person, place and time. SKIN: Well perfused. Good skin turgor. LABS: Reviewed. WBC stable over 13,000 Procedures: Procedure(s) Performed: 1. Robotic-assisted daVinci Xi laparoscopic appendectomy 2. Robotic-assisted daVinci Xi laparoscopic lyses of adhesions Anesthesia: GETA, local Estimated Blood Loss (ml): 10 Pathology: other (appendix) Condition: stable Disposition: floor Operative Findings: 1. Acute appendicitis without rupture with periappendicitis 2. Terminal ileum unremarkable 3. Cecum unremarkable 4. No bilateral inguinal hernias Patient Condition at Discharge: Stable Plan - Discharge Summary Discharge Rx Participant: No New Discharge Prescriptions: Continue Zolpidem [Ambien] 10 mg PO HS Hyoscyamine Sulfate [Hyoscyamine Sulfate SL] 0.125 mg SL DAILY PRN PRN Reason: Gi Upset HYDROcodone/APAP 10-325MG [Borden 10-325] 1 tab PO QID busPIRone HCL 7.5 mg PO BID Pantoprazole [Protonix] 40 mg PO DAILY Escitalopram [Lexapro] 20 mg PO DAILY buPROPion XL [Wellbutrin XL] 150 mg PO DAILY buPROPion HCL [Wellbutrin XL] 300 mg PO DAILY Discharge Medication List Escitalopram [Lexapro] 20 mg PO DAILY 05/02/20 [History] HYDROcodone/APAP 10-325MG [Borden 10-325] 1 tab PO QID 05/02/20 [History] Hyoscyamine Sulfate [Hyoscyamine Sulfate SL] 0.125 mg SL DAILY PRN 05/02/20 [History] Pantoprazole [Protonix] 40 mg PO DAILY 05/02/20 [History] Zolpidem [Ambien] 10 mg PO HS 05/02/20 [History] buPROPion HCL [Wellbutrin XL] 300 mg PO DAILY 05/02/20 [History] buPROPion XL [Wellbutrin XL] 150 mg PO DAILY 05/02/20 [History] busPIRone HCL 7.5 mg PO BID 05/02/20 [History] Follow up Appointment(s)/Referral(s): Robyn Sharma MD [Primary Care Provider] - 1-2 days Gabi Santiago MD [STAFF PHYSICIAN] - 05/12/20 Patient Instructions/Handouts: Appendicitis (GEN), Laparoscopic Appendectomy (GEN) Activity/Diet/Wound Care/Special Instructions: No lifting over 10 pounds in 2 weeks, May 17. November shower. No bath tub soaks for two weeks, May 17. Diet as tolerated. No driving while on narcotics. Notify surgeon for temperature over 101.5, increased redness along incision, increased pain along surgical site. Discharge Disposition: HOME SELF-CARE
== END 2020-05-04 15:31 | disposition home or self-care (01) ==
LOC: EC 18:44 → 1SOBS 20:34
PROVIDERS: ADMIT Surgery Plastic and Reconstructive Surgery; ATTEND Surgery Plastic and Reconstructive Surgery
DX: K35.80 Unspecified acute appendicitis (principal); N73.6 Female pelvic peritoneal adhesions (postinfective); A41.9 Sepsis, unspecified organism; K51.90 Ulcerative colitis, unspecified, without complications; Z72.0 Tobacco use; G89.4 Chronic pain syndrome; F32.9 Major depressive disorder, single episode, unspecified; D64.9 Anemia, unspecified; K21.9 Gastro-esophageal reflux disease without esophagitis; Z79.891 Long term (current) use of opiate analgesic; Z79.899 Other long term (current) drug therapy; Z88.6 Allergy status to analgesic agent; Z98.891 History of uterine scar from previous surgery; Z90.49 Acquired absence of other specified parts of digestive tract; Z90.710 Acquired absence of both cervix and uterus; F17.200 Nicotine dependence, unspecified, uncomplicated; K58.9 Irritable bowel syndrome, unspecified; F41.9 Anxiety disorder, unspecified; Z87.442 Personal history of urinary calculi
CPT/HCPCS: 96375 ×2; 96376 ×3; 96361; 96374; 99285; 36415; 88304; 80053 ×2; 80048; 82150; 83605; 83690; 83735; 84100; 84132; 85025 ×3; 85610; 85730; 81001; 87040; 74177; 44970; G0378 ×3; J2543 ×3; J2250; J1200; J1100; J2405 ×3; J0690; J2001; J3010; J1650; J1170 ×3; J3475; J1885 ×2; J0330; J2704; C9113 ×2; Q9967